=== PATIENT | male | born 1965 | race Two or more races ===

== ENCOUNTER 2023-01-07 09:20 | Emergency (ER) | payer MEDICAID, OTHER ==
[~2023-01-07] VITALS: Ht 167.6 cm; Wt 86.2 kg
[2023-01-07] MEDS ORDERED: SODIUM CHLORIDE 0.9% 1,000 ML IV ONE (09:45)
[2023-01-07] MEDS ORDERED: InsuLIN REG 1unit/0.01ml Soln (100units/ml) IV ONE (09:45)
[2023-01-07 10:45] LABS: Basophils # (auto) 0.1 10 ^3/uL (0-0.2); Basophils % (auto) 0.8 % (0.0-2.0); Eosinophils # (auto) 0.4 10 ^3/uL (0-0.8); Eosinophils % (auto) 4.6 % (0.0-7.0); Hematocrit 46.6 % (41.0-53.0); Hemoglobin 16.4 g/dL (13.5-17.5); Lymphocytes # (auto) 3.3 10 ^3/uL (0.4-5.4); Lymphocytes % (auto) 39.3 % (10.0-50.0); Mean Corpuscular Hemoglobin 30.3 pg (28.0-32.0); Mean Corpuscular Hgb Conc. 35.1 g/dL (32.0-36.0); Mean Corpuscular Volume 86.3 fL (80.0-100.0); Monocytes # (auto) 0.6 10 ^3/uL (0-1.3); Monocytes % (auto) 6.8 % (0.0-12.0); Neutrophils # (auto) 4.1 10 ^3/uL (1.6-8.6); Neutrophils % (auto) 48.5 % (37.0-80.0); Nucleated Red Blood Cells % 0.4 %; Red Cell Distribution Width 13.7 % (11.8-14.3); White Blood Cell 8.4 10^3/uL (4.4-10.8)
[2023-01-07 10:46] VITALS: BP 154/93
[2023-01-07 11:02] LABS: Urine Bacteria NONE SEEN /hpf (None Seen); Urine Blood Negative /uL (Negative); Urine Specific Gravity 1.035 (1.001-1.035); Urine WBC <1 /hpf (0 - 3)
[2023-01-07] MEDS ORDERED: METF-370 PO (12:49)
[2023-01-07 12:57] LABS: Anion Gap 11 (5-15); BUN/Creatinine Ratio 12.8 (10.0-20.0); Blood Urea Nitrogen 16 mg/dL (7-18); Carbon Dioxide 21 mmol/L (21-32); Chloride 99 mmol/L (98-107); GFR African American 77 mL/min; GFR Non-African American 64 mL/min; Potassium 4.9 mmol/L (3.5-5.1); Sodium 131 mmol/L (136-145)
[2023-01-07 12:58] LABS: Alkaline Phosphatase 128 U/L (45-117)
[2023-01-07 13:00] LABS: Albumin 3.3 g/dL (3.4-5.0); Bilirubin, Total 0.7 mg/dL (0.2-1.0); Calcium 7.5 mg/dL (8.5-10.1)
[2023-01-07 13:03] LABS: Glucose 591 mg/dL (74-106)
[2023-01-07 13:16] LABS: Alanine Aminotransferase 38 U/L (16-61); Aspartate Aminotransferase 42 U/L (15-37)
== END 2023-01-07 12:54 | disposition home or self-care (01) ==
LOC: ER 09:20
DX: R73.9 Hyperglycemia, unspecified (principal); I10 Essential (primary) hypertension; R51.9 Headache, unspecified; R42 Dizziness and giddiness
CPT/HCPCS: 36415; 80053; 81001; 82962; 84484; 85025; 96361; 96374; 99283; J1815; J7030

== ENCOUNTER → 2023-11-15 | Outpatient (CLI) | payer OTHER, MEDICAID ==
[~2023-11-15] MED LIST: METF-370 PO
[2023-11-15 08:20] LABS: Urine Bacteria None Seen /hpf (None Seen)
[2023-11-15 08:46] LABS: Urine Blood Negative /uL (Negative); Urine Clarity Clear (Clear); Urine Color Light-Yellow (Yellow); Urine Protein, UAD Negative (Negative); Urine Specific Gravity 1.036 (1.001-1.035); Urine Urobilinogen Normal (Negative); Urine WBC <1 /hpf (0 - 3)
[2023-11-15 08:47] LABS: Basophils # (auto) 0 10 ^3/uL (0-0.2); Basophils % (auto) 0.6 % (0.0-2.0); Eosinophils # (auto) 0.2 10 ^3/uL (0-0.8); Eosinophils % (auto) 3.3 % (0.0-7.0); Hematocrit 46.7 % (41.0-53.0); Hemoglobin 15.8 g/dL (13.5-17.5); Lymphocytes # (auto) 3.4 10 ^3/uL (0.4-5.4); Lymphocytes % (auto) 49.2 % (10.0-50.0); Mean Corpuscular Hemoglobin 29.8 pg (28.0-32.0); Mean Corpuscular Hgb Conc. 33.8 g/dL (32.0-36.0); Monocytes # (auto) 0.6 10 ^3/uL (0-1.3); Monocytes % (auto) 8.3 % (0.0-12.0); Neutrophils # (auto) 2.7 10 ^3/uL (1.6-8.6); Neutrophils % (auto) 38.6 % (37.0-80.0); Nucleated Red Blood Cells % 0.1 %; Red Blood Cells 5.31 10^6/uL (4.5-5.90); Red Cell Distribution Width 13.8 % (11.8-14.3); White Blood Cell 6.9 10^3/uL (4.4-10.8)
[2023-11-15 09:17] LABS: Alanine Aminotransferase 29 U/L (7-40); Alkaline Phosphatase 87 U/L (46-116); Anion Gap 7 (5-15); Aspartate Aminotransferase 18 U/L (13-40); BUN/Creatinine Ratio 10.8 (10.0-20.0); Blood Urea Nitrogen 11 mg/dL (9-23); Calcium 8.8 mg/dL (8.5-10.1); Carbon Dioxide 23 mmol/L (20-30); Chloride 102 mmol/L (98-107); Glucose 323 mg/dL (74-106); Potassium 4.6 mmol/L (3.5-5.1); Sodium 132 mmol/L (136-145); Triglycerides 938 mg/dL (< 150)
[2023-11-15 09:18] LABS: Albumin 4.2 g/dL (3.2-4.8); Bilirubin, Total 0.4 mg/dL (0.2-1.0); Cholesterol 255 mg/dL (< 200); HDL Cholesterol 37 mg/dL (40-59); Total Protein 7.4 g/dL (5.7-8.2)
== END | disposition home or self-care (01) ==
LOC: LAB 08:11
PROVIDERS: ATTEND Nurse Practitioner
DX: Z12.5 Encounter for screening for malignant neoplasm of prostate (principal); I10 Essential (primary) hypertension; E11.9 Type 2 diabetes mellitus without complications; E78.5 Hyperlipidemia, unspecified
CPT/HCPCS: 36415; 80053; 80061; 81001; 83036; 84153; 84443; 85025

== ENCOUNTER → 2024-02-02 | Outpatient (CLI) | payer OTHER, MEDICAID ==
[2024-02-02 11:14] LABS: Alanine Aminotransferase 34 U/L (7-40); Alkaline Phosphatase 88 U/L (46-116); Anion Gap 10 (5-15); Aspartate Aminotransferase 11 U/L (13-40); BUN/Creatinine Ratio 8.8 (10.0-20.0); Blood Urea Nitrogen 9 mg/dL (9-23); Carbon Dioxide 22 mmol/L (20-30); Chloride 103 mmol/L (98-107); Glucose 313 mg/dL (74-106); Potassium 4.4 mmol/L (3.5-5.1); Sodium 135 mmol/L (136-145); Triglycerides 712 mg/dL (< 150)
[2024-02-02 11:15] LABS: Albumin 4.2 g/dL (3.2-4.8)
[2024-02-02 11:16] LABS: Bilirubin, Total 0.4 mg/dL (0.2-1.0); Cholesterol 228 mg/dL (< 200); HDL Cholesterol 36 mg/dL (40-59); Total Protein 7.2 g/dL (5.7-8.2)
== END | disposition home or self-care (01) ==
LOC: LAB 09:49
PROVIDERS: ATTEND Nurse Practitioner
DX: E78.5 Hyperlipidemia, unspecified (principal); E11.9 Type 2 diabetes mellitus without complications
CPT/HCPCS: 36415; 80053; 80061; 83036